=== PATIENT | female | born 1960 | race Caucasian/White ===

== ENCOUNTER 2018-05-06 06:23 | Day surgery (SDC) | payer OTHER ==
--- NOTE | 2018-05-04 16:58 | RAD REPORT ---
EXAM DESCRIPTION: Pradeep Brewster (2 Views)05/04/2018 4:51 pm CLINICAL HISTORY: Preop for lipoma removal lower back COMPARISON: September 2017 FINDINGS: The lungs appear clear of acute infiltrate. The heart is borderline enlarged IMPRESSION: No acute abnormalities displayed
[2018-05-04 17:20] LABS: Absolute Lymphocytes (CBC) 3.1 K/uL (0.7-4.9); Absolute Monocytes 0.7 K/uL (0.1-1.3); Absolute Neutrophil 3.8 K/uL (1.8-8.0); Basophils % 0.8 % (0-1.3); Eosinophils % 4.7 % (0-4.4); Hematocrit 32.6 % (36.0-45.0); Lymphocytes % 38.7 % (15.3-44.8); MCH 28.7 pg (27.0-35.0); MCV 83.9 fL (80-100); MPV 9.1 fL (7.6-11.3); Monocytes % 8.9 % (3.3-12.3); RBC Red Blood Cell Count 3.88 M/uL (3.86-4.86)
[2018-05-04 17:36] LABS: Potassium 3.8 mmol/L (3.5-5.1)
--- NOTE | 2018-05-05 06:29 | EKG ---
Test Date: 2018-05-04 Test Time: 17:47:08 Manager Convention: PRAMOD MEASUREMENT RESULTS: Intervals: Rate: 61 NH: 144 QRSD: 74 QT: 434 QTc: 436 [place]: P: 40 NH: 144 QRS: 31 T: 33 INTERPRETIVE STATEMENTS: Normal sinus rhythm Normal ECG No previous ECG available for comparison Electronically Signed On 05-05-18 06:28:54 ASBESTOS CLOTH INSPECTOR by Brendan Yepez
[2018-05-06] MEDS ORDERED: CEFAZOLIN/SWI 1gm 1 GM/10 ML SYR ONE (07:00)
[2018-05-06] MEDS ORDERED: Ringers Lactate 1,000 ML IV ONE (07:00)
[2018-05-06] MEDS ORDERED: PROPOFOL 200 MG/20 ML VIAL IV ONE (07:26)
[2018-05-06] MEDS ORDERED: MIDAZOLAM HCL 2 MG/2 ML INJ ONE (07:27)
[2018-05-06] MEDS ORDERED: FENTANYL CITR 100 MCG/2 ML ONE (07:27)
[2018-05-06] MEDS ORDERED: ONDANSETRON 4 MG/2 ML VIAL ONE (07:28)
[2018-05-06] MEDS ORDERED: LIDOCAINE 1% MPF 2 ML AMPULE ONE (07:29)
[2018-05-06] MEDS ORDERED: DEXAMETHASONE 10 MG/ML VIAL ONE (08:11)
--- NOTE | 2018-05-06 08:43 | P.BOP ---
Preoperative diagnosis: tender enlarging back subcutaneous mass Postoperative diagnosis: same Primary procedure: Excisional biopsy tender enlarging back subcutaneous mass 15x8cm Estimated blood loss: <10cc Specimen: mass Findings: deep mass touching muscle Anesthesia: General Transferred to: Recovery Room Condition: Good
[2018-05-06] MEDS ORDERED: CODEINE 30MG/APAP 300MG TAB ONE (09:54)
--- NOTE | 2018-05-11 22:49 | OP ---
Date of Procedure: 05/06/2018 Surgeon: Darryn Salmon MD Preoperative Diagnosis: Tender, enlarging back subcutaneous mass. Postoperative Diagnosis: Tender, enlarging back subcutaneous mass. Procedure: Excisional biopsy of tender, enlarging back subcutaneous mass, 15 x 8 cm. Specimen: Mass. Findings: Deep mass, pus in the muscle, some of the fascia of the muscle. The fascia of the muscle attached to it and needs to be also removed with the specimen. Anesthesia: General plus local. Indications: This is the case of a female, who came to us with a large mass increasing in size and p ain and discomfort, needs to be excised. The benefits, alternatives, and risks of excision were full y explained to the patient, which include but are not limited to infection, bleeding, damage to adjac ent structures, anesthesia complication, recurrence, NM, and even . She also understands this m ay not relieve any symptoms, she might need more than one surgical intervention. She understood and signed a consent. Description Of Procedure: The patient was brought to the operating room, placed in supine position. Anesthesia was done without complication. The area of concern was marked by me and the patient prev iously in the holding room. The patient was placed in lateral decubitus position with proper protect ion. A time-out was called. The area was prepped and draped in a sterile fashion followed by sharp incision of the skin in a wedge fashion. Incision was carried down to deep subcutaneous tissue. We noticed this mass keep going until I go and reach the area of the muscle, although the muscle seems n ot to be penetrated by it. The area was irrigated. Mass was completely excised. The area was irrig ated and then we closed it in deep layers with chromic, mid layers with chromic, and then the skin wa s approximated. Sponge count and instrument counts were correct. The patient tolerated the procedur e well. Hemostasis was obtained before closure. JASSON/WANDRE Voice ID: [id number] Report ID: [id number]
--- NOTE | 2018-05-11 22:50 | DS ---
Date of Discharge: 05/06/2018 Diagnosis: Tender, enlarging back subcutaneous mass. Procedure: Excisional biopsy of tender, enlarging back subcutaneous mass. Disposition: Home. Activity: As tolerated. No heavy lifting. Followup: Follow up in my office in 1 week. Call for appointment on [phone]. Keep area dry for 48 hours, then may shower. Medications: See orders. JASSON/WANDER Voice ID: [id number] Report ID: [id number]
== END 2018-05-06 10:09 | disposition home or self-care (01) ==
LOC: OR 06:23
PROVIDERS: ATTEND Surgery
PROC: 0JB70ZZ Excision of Back Subcutaneous Tissue and Fascia, Open Approach (ICD-10-PCS; principal; 2018-05-06 07:30)
DX: R22.2 Localized swelling, mass and lump, trunk (principal); K21.9 Gastro-esophageal reflux disease without esophagitis; Z80.3 Family history of malignant neoplasm of breast; Z82.49 Family history of ischemic heart disease and other diseases of the circulatory system
CPT/HCPCS: 36415; 71046; 80048; 85025; 88304; 93005; J0690; J1100; J2001; J2250; J2405; J2704; J3010

== ENCOUNTER 2019-07-02 13:23 | Observation (INO) | payer OTHER ==
--- OUTSIDE RECORDS SUMMARY | 2019-07-02 13:24 | XMS REPORT ---
:1960 [facility] Address [address] [place] [address] [address] [place] [address] Care Team Providers Name Role Phone Unavailable Unavailable Unavailable Problems This patient has no known problems. Allergies, Adverse Reactions, Alerts This patient has no known allergies or adverse reactions. Medications This patient has no known medications. Encounters Start End Encounter Admission Attending Care Care Encounter Date/Time Date/Time Type Type Clinicians Facility Department ID 2018-11-02 Inpatient [id number] 05:25:00
--- OUTSIDE RECORDS SUMMARY | 2019-07-02 13:24 | XMS REPORT | Summary of Care ---
:1960 Author Organization [facility] Address [address] [place] [address] Care Team Providers Name Role Phone MELODY CEDENO M.D. 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 Start : 29-Oct-2018 Active 0.4 ML Syringe Pantoprazole Sodium 40 MG Oral Tablet Delayed Release TAKE 1 TABLET DAILY. Quantity: 30 Refills: 0 MELODY CEDENO M.D. Start : 19-May-2019 Active Carafate 1 GM/10ML Oral Suspension TAKE 10 ML 4 TIMES DAILY Quantity: 1200 Refills: 0 MELODY CEDENO M.D. Start : 19-May-2019 Active Allergies and Adverse Reactions Name Dates Details No Known Drug Allergies (Allergy) Status: Active Procedures Procedure Dates Details Procedures not documented Immunization Name Dates Details Immunizations not documented Social History Name Dates Details Unknown if ever smoked Vital Signs Date Test Result Details No Known Vitals to report Results Date Description Value Details Results not documented Plan of Care Name Dates Details Planned Observations Planned Goals not documented Planned Encounters Appointment; MELODY CEDENO M.D. On: 07-Jul-2019 13:00 Instructions Name Dates Details Instructions not documented Encounters Appointment; MELODY CEDENO M.D. On: 01-Jul-2018 13:15 Encounter Diagnosis: Problem not documented Appointment; MELODY CEDENO M.D. On: 08-Jul-2018 9:45 Encounter Diagnosis: Problem not documented Appointment; [place] [facility] On: 03-Aug-2018 9:00 Encounter Diagnosis: Problem not documented Appointment; [place] [facility] On: 01-Sep-2018 9:00 Encounter Diagnosis: Problem not documented Appointment; [place] [facility] On: 08-Sep-2018 10:30 Encounter Diagnosis: Problem not documented Appointment; SUSANNE PARKER NP On: 23-Sep-2018 13:00 Encounter Diagnosis: Problem not documented Appointment; SUSANNE PARKER NP On: 02-Oct-2018 13:45 Encounter Diagnosis: Problem not documented Appointment; MELODY CEDENO M.D. On: 28-Oct-2018 9:30 Encounter Diagnosis: Problem not documented Appointment; MELODY CEDENO M.D. On: 02-Nov-2018 9:00 Encounter Diagnosis: Problem not documented Appointment; MELODY CEDENO M.D. On: 11-Nov-2018 8:45 Encounter Diagnosis: Problem not documented Appointment; MELODY CEDENO M.D. On: 23-Dec-2018 10:30 Encounter Diagnosis: Problem not documented Appointment; MELODY CEDENO M.D. On: 07-Jan-2019 9:00 Encounter Diagnosis: Problem not documented Appointment; MELODY CEDENO M.D. On: 20-Jan-2019 14:15 Encounter Diagnosis: Problem not documented Appointment; MELODY CEDENO M.D. On: 17-Feb-2019 10:45 Encounter Diagnosis: Problem not documented Appointment; MELODY CEDENO M.D. On: 24-Feb-2019 13:00 Encounter Diagnosis: Problem not documented Appointment; MELODY CEDENO M.D. On: 19-May-2019 8:45 Encounter Diagnosis: Problem not documented Appointment; MELODY CEDENO M.D. On: 04-Jun-2019 9:00 Encounter Diagnosis: Problem not documented
--- NOTE | 2019-07-02 13:47 | EKG ---
Test Date: 2019-07-02 Test Time: 13:36:48 Electronics Production Supervisor: ALEXI MEASUREMENT RESULTS: Intervals: Rate: 85 NM: QRSD: 76 QT: 396 QTc: 471 [place]: P: NM: QRS: 31 T: 6 INTERPRETIVE STATEMENTS: Atrial flutter with variable AV block Nonspecific ST and T wave abnormality Prolonged QT Abnormal ECG Compared to ECG 05/04/2018 17:47:08 ST (T wave) deviation now present Prolonged QT interval now present Sinus rhythm no longer present Electronically Signed On 07-02-19 13:46:38 SUPERINTENDENT CIRCUS by Govind Lizarraga
[2019-07-02 14:06] LABS: Protime INR 1.19
[2019-07-02 14:13] LABS: Absolute Lymphocytes (CBC) 1.1 K/uL (0.7-4.9); Basophils % 0.5 % (0-1.3); Hematocrit 35.2 % (36.0-45.0); Lymphocytes % 33.3 % (15.3-44.8); MPV 11.1 fL (7.6-11.3); RBC Red Blood Cell Count 4.03 M/uL (3.86-4.86)
[2019-07-02 14:23] LABS: Albumin 2.9 g/dL (3.4-5.0); Bilirubin Direct 0.1 mg/dL (0-0.2); Bilirubin Total 0.4 mg/dL (0.2-1.0); Magnesium 1.9 mg/dL (1.8-2.4); Protein, Total 6.3 g/dL (6.4-8.2); Troponin (Emerg Dept Use Only) 0.09 ng/mL (0.0-0.045)
[2019-07-02 14:24] LABS: Potassium 2.7 mmol/L (3.5-5.1)
--- NOTE | 2019-07-02 14:37 | RAD REPORT ---
EXAM DESCRIPTION: RAD - Chest Single View - 07/02/2019 2:13 pm CLINICAL HISTORY: Hypotension, shortness of breath, recent flu diagnosis COMPARISON: April 2018 TECHNIQUE: AP portable chest image was obtained 1404 hours . FINDINGS: Lungs are clear. Heart and vasculature are normal. No measurable pleural effusion and no p neumothorax. No acute bony abnormality seen. No acute aortic findings suspected. IMPRESSION: No acute cardiopulmonary process.
[2019-07-02 14:51] LABS: Blood Morphology Comment NOT SEEN (NOT SEEN); Platelet Estimate ADEQ
[2019-07-02] MEDS ORDERED: ASPIRIN EC 81 MG TAB PO ONE (15:41)
[2019-07-02] MEDS ORDERED: POTASSIUM CL SA 10 MEQ TAB PO ONE (15:41)
[2019-07-02] MEDS ORDERED: KCL 20 MEQ/100 mL IVPB 20 MEQ/100 ML BAG IV ONE (15:42)
[2019-07-02] MEDS ORDERED: NA CHLORIDE 0.9% 500 ML ONE (15:42)
[2019-07-02] MEDS ORDERED: NA CHLORIDE 0.9% 2,000 ML ONE (17:32)
--- NOTE | 2019-07-02 17:52 | RAD REPORT ---
EXAM DESCRIPTION: CT - Head Brain Wo Cont - 07/02/2019 5:43 pm CLINICAL HISTORY: Syncope COMPARISON: None TECHNIQUE: Computed axial tomography of the head was obtained. IV contrast was not requested. All CT scans are performed using dose optimization technique as appropriate and may include automated exposure control or mA/KV adjustment according to patient size. FINDINGS: An intracranial bleed is not seen . The ventricles are normal in caliber. No extra-axial fluid collection is noted. Cerebellar tonsillar ectopia is present Fluid within the sinuses/ mastoids is not seen. IMPRESSION: No acute intracranial abnormality is seen. If patient's symptoms persist MRI of the bra in would be recommended. Cerebellar tonsillar ectopia
--- NOTE | 2019-07-02 18:13 | ER ---
Nurse's Notes [facility] Name: Tricia Dodge Age: 59 yrs Sex: Female : 1960 Arrival Date: 07/02/2019 Time: 13:24 Bed 15 Private MD: Diagnosis: Syncope and collapse;Hypokalemia;Atrial fibrillation and flutter Presentation: 07/02 13:32 Presenting complaint: Patient states: "I was diagnosed with flu B yesterday, but when I ss was taking a shower today, I wasn't feeling well and I woke up to my granddaughter saying "Nanny Shaw!" I was vomiting and both of my hands were cramping and tingling as well as my knees. My blood pressure was low at the house." reports that incident occurred 1 hour ago. Transition of care: patient was not received from another setting of care. Onset of symptoms was June 30, 2019. Risk Assessment: Do you want to hurt yourself or someone else? Patient reports no desire to harm self or others. Initial Sepsis Screen: Does the patient meet any 2 criteria? Systolic BP < 90 mmHg. HR > 90 bpm. Yes Does the patient have a suspected source of infection? No. Patient's initial sepsis screen is negative. Care prior to arrival: None. 13:32 Method Of Arrival: Wheelchair ss 13:32 Acuity: SAMINA 2 ss Triage Assessment: 13:45 General: Appears in no apparent distress. comfortable, Behavior is cooperative, bp appropriate for age, anxious. Pain: Denies pain. EENT: No deficits noted. Neuro: Reports a syncopal episode. Cardiovascular: No deficits noted. Respiratory: No deficits noted. GI: No signs and/or symptoms were reported involving the gastrointestinal system. : No signs and/or symptoms were reported regarding the genitourinary system. Derm: No deficits noted. Musculoskeletal: No deficits noted. Historical: - Allergies: 13:35 No Known Allergies; ss - Home Meds: 15:21 escitalopram oxalate 10 mg oral tab 1 tab once daily [Active]; Klor-Con oral 8 mEq oral iw once daily [Active]; pantoprazole 40 mg oral TbEC 1 tab once daily [Active]; oseltamivir oral oral once daily [Active]; - PMHx: 15:21 GERD; Anxiety; Depression; iw - PSHx: 15:21 Gastric Bypass; breast reduction; sinus; Hysterectomy; iw - Immunization history:: Adult Immunizations up to date. - Social history:: Smoking status: Patient/guardian denies using tobacco. - Ebola Screening: : Patient denies exposure to infectious person Patient denies travel to an Ebola-affected area in the 21 days before illness onset. Screenin:25 Abuse screen: Denies threats or abuse. Denies injuries from another. Nutritional bp screening: No deficits noted. Tuberculosis screening: No symptoms or risk factors identified. Fall Risk None identified. Assessment: 13:45 General: SEE TRIAGE NOTE. Neuro: Level of Consciousness is awake, alert, obeys bp commands, Oriented to person, place, time, situation. Cardiovascular: Rhythm is sinus rhythm. 15:02 Reassessment: ALL CURRENT ORDERS COMPLETED, DISPO PENDING. bp 16:07 Reassessment: ALL CURRENT ORDERS COMPLETED, K REPLETION IN PROCESS. bp 17:33 Reassessment: PT TO CT. bp 17:58 Reassessment: PT RETURNED FROM CT. IVF INFUSING. bp 18:47 Reassessment: ADMIT IN PROCESS. MED REQUESTED FROM PHARMACY. bp 19:15 Reassessment: Patient and/or family updated on plan of care and expected duration. Pain vc level reassessed. Patient is alert, oriented x 3, equal unlabored respirations, skin warm/dry/pink. 20:30 Reassessment: Patient educated on the reason she is being started on Eliquis, vc at bedside, patient and both verbalize understanding and have no further questions. 21:00 Reassessment: Patient placed in hospital bed for comfort and provided a warm blanket. vc No other needs or concerns at this time. Vital Signs: 13:22 BP 71 / 56; Pulse 95; Resp 17; Temp 98.8(TE); Pulse Ox 100% on R/A; Weight 71.67 kg; ss Height 5 ft. 8 in. (172.72 cm); 13:30 BP 93 / 70; Pulse 96; Resp 19; Pulse Ox 100% on R/A; ss 13:36 BP 99 / 70; Pulse 93; ss 14:21 BP 97 / 69; Pulse 86; Resp 14; Pulse Ox 100% ; bp 14:49 BP 105 / 74; Pulse 89; Resp 15; Pulse Ox 100% ; bp 15:02 BP 113 / 75; Pulse 85; Resp 16; Pulse Ox 95% ; bp 15:48 BP 117 / 86; Pulse 105; Resp 21; Pulse Ox 100% ; bp 16:07 BP 108 / 71; Pulse 104; Resp 22; Pulse Ox 100% ; bp 17:00 BP 115 / 75; Pulse 70; Resp 20; Pulse Ox 95% ; bp 17:58 BP 109 / 71; Pulse 66; Resp 17; Pulse Ox 100% ; bp 18:47 BP 118 / 73; Pulse 59; Resp 15; Pulse Ox 100% ; bp 19:30 BP 116 / 84; Pulse 70; Resp 16; Pulse Ox 100% on R/A; Pain 0/10; vc 13:22 Body Mass Index 24.02 (71.67 kg, 172.72 cm) ss ED Course: 13:24 Patient arrived in ED. mr 13:28 Andre Dunn MD is Attending Physician. kdr 13:35 Triage completed. ss 13:36 Arm band placed on right wrist. ss 13:52 Initial lab(s) drawn, by az, sent to lab. Inserted saline lock: 22 gauge in right jb1 antecubital area, using aseptic technique. Blood collected. 13:53 EKG done, by psychology technician. reviewed by Andre Dunn MD. jb1 13:54 Flu and/or RSV swab sent to lab. jb1 13:59 Jaime Brooks, RN is Primary Nurse. bp 14:15 XRAY Chest (1 view) In Process Unspecified. EDMS 14:26 Patient has correct armband on for positive identification. Bed in low position. Call bp light in reach. Side rails up X2. 14:27 Notified ED physician of a critical lab result(s). potassium=2.7. iw 17:43 CT Head Brain wo Cont In Process Unspecified. EDMS 18:11 Duncan Jiang MD is Hospitalizing Provider. kdr 19:59 No provider procedures requiring assistance completed. Patient admitted, IV remains in vc place. Administered Medications: 15:30 Drug: Potassium Chloride 20 mEq Route: IV; Rate: calculated rate; Site: right bp antecubital; 17:58 Follow up: IV Status: Completed infusion; IV Intake: 100ml bp 15:30 Drug: Potassium Chloride 40 mEq Route: PO; bp 17:58 Follow up: Response: No adverse reaction bp 15:30 Drug: Aspirin Chewable Tablet 324 mg Route: PO; bp 17:58 Follow up: Response: No adverse reaction bp 17:00 Drug: NS 0.9% 2000 ml Route: IV; Rate: 1 bolus; Site: right antecubital; bp 07/03 03:45 Follow up: Response: No adverse reaction; IV Status: Completed infusion 07/02 17:57 Not Given (Physician Discretion): NS 0.45 % with KCl 20 mEq/L 2000 ml IV at 125 ml/hr bp once 20:13 Drug: Eliquis 5 mg Route: PO; vc 07/03 03:46 Follow up: Response: No adverse reaction wh Intake: 07/02 17:58 IV: 100ml; Total: 100ml. bp Outcome: 18:12 Decision to Hospitalize by Provider. kdr 19:59 Ad[facility] to [facility] Hold. [facility]. vc 19:59 Condition: good 19:59 Instructed on the need for admit. 07/03 12:30 Admitted to Med/surg accompanied by tech, family with patient, via wheelchair, room bp 228, with chart, Report called to JESSIE RIZVI 13:16 Patient left the ED. ss Signatures: Dispatcher [employer] EDMS Avni Colon Kevin, MD MD kdr Rivera, Mary mr Shaneka Burks RN RN Liz Hill RN RN Vannesa Adams Jamie Brooks RN RN bp Cal[place], Vanessa, RN RN vc
--- NOTE | 2019-07-02 18:14 | EDPHYS ---
Physician Documentation [facility] Name: Tricia Dodge Age: 59 yrs Sex: Female : 1960 Arrival Date: 07/02/2019 Time: 13:24 Bed 15 Private MD: ED Physician Andre Dunn HPI: 07/02 18:49 This 59 yrs old Female presents to ER via Wheelchair with complaints of Blood kdr Pressure Problem, Flu Symptoms, Syncope. 18:49 The patient has experienced syncope, became unresponsive, collapsed, lost kdr consciousness. Onset: The symptoms/episode began/occurred suddenly, just prior to arrival, today. Duration: This was a single episode, that lasted an unknown period of time. Context: the episode(s) was witnessed, by family, occurred at home, occurred while the patient was Standing in a hot shower for about 30 minutes. The patient also had a gastric bypass in the recent past and has lost about 100 pounds in the past three months. She denies any head trauma. Associated injury: The patient did not suffer any apparent associated injury. Associated signs and symptoms: The patient has no apparent associated signs or symptoms. Current symptoms: Currently, the patient is not experiencing any symptoms, the patient feels back to baseline, no confusion, no dysphasia, no headache, no paralysis, no visual changes. The patient has not experienced similar symptoms in the past. The patient has been recently seen by a physician: Was diagnosed with Flu B yesterday and had had one dose of Tamiflu. Historical: - Allergies: 13:35 No Known Allergies; - Home Meds: 15:21 escitalopram oxalate 10 mg oral tab 1 tab once daily [Active]; Klor-Con oral 8 mEq oral iw once daily [Active]; pantoprazole 40 mg oral TbEC 1 tab once daily [Active]; oseltamivir oral oral once daily [Active]; - PMHx: 15:21 GERD; Anxiety; Depression; iw - PSHx: 15:21 Gastric Bypass; breast reduction; sinus; Hysterectomy; iw - Immunization history:: Adult Immunizations up to date. - Social history:: Smoking status: Patient/guardian denies using tobacco. - Ebola Screening: : Patient denies exposure to infectious person Patient denies travel to an Ebola-affected area in the 21 days before illness onset. ROS: 18:49 Constitutional: Negative for fever, chills, and weight loss, Eyes: Negative for injury, kdr pain, redness, and discharge, Neck: Negative for injury, pain, and swelling, Cardiovascular: Negative for chest pain, palpitations, and edema - she denies any specific a-fub s/s - states that she had not felt entirely normal but could not attribute her feelings to her now known a-fib Respiratory: Negative for shortness of breath, cough, wheezing, and pleuritic chest pain, Abdomen/GI: Negative for abdominal pain, nausea, vomiting, diarrhea, and constipation, Back: Negative for injury and pain, : Negative for injury, bleeding, discharge, and swelling, MS/Extremity: Negative for injury and deformity, Skin: Negative for injury, rash, and discoloration, Psych: Negative for depression, anxiety, suicide ideation, homicidal ideation, and hallucinations, Allergy/Immunology: Negative for hives, rash, and allergies, Endocrine: Negative for neck swelling, polydipsia, polyuria, polyphagia, and marked weight changes, Hematologic/Lymphatic: Negative for swollen nodes, abnormal bleeding, and unusual bruising. 18:49 Neuro: Positive for loss of consciousness, syncope. Exam: 18:49 Constitutional: This is a well developed, well nourished patient who is awake, alert, kdr and in no acute distress. Head/Face: Normocephalic, atraumatic. Eyes: Pupils equal round and reactive to light, extra-ocular motions intact. Lids and lashes normal. Conjunctiva and sclera are non-icteric and not injected. Cornea within normal limits. Periorbital areas with no swelling, redness, or edema. ENT: Nares patent. No nasal discharge, no septal abnormalities noted. Tympanic membranes are normal and external auditory canals are clear. Oropharynx with no redness, swelling, or masses, exudates, or evidence of obstruction, uvula midline. Mucous membranes moist. Neck: Trachea midline, no thyromegaly or masses palpated, and no cervical lymphadenopathy. Supple, full range of motion without nuchal rigidity, or vertebral point tenderness. No Meningismus. Chest/axilla: Normal chest wall appearance and motion. Nontender with no deformity. No lesions are appreciated. Respiratory: Lungs have equal breath sounds bilaterally, clear to auscultation and percussion. No rales, rhonchi or wheezes noted. No increased work of breathing, no retractions or nasal flaring. Abdomen/GI: Soft, non-tender, with normal bowel sounds. No distension or tympany. No guarding or rebound. No evidence of tenderness throughout. Back: No spinal tenderness. No costovertebral tenderness. Full range of motion. Skin: Warm, dry with normal turgor. Normal color with no rashes, no lesions, and no evidence of cellulitis. MS/ Extremity: Pulses equal, no cyanosis. Neurovascular intact. Full, normal range of motion. Neuro: Awake and alert, GCS 15, oriented to person, place, time, and situation. Cranial nerves II-XII grossly intact. Motor strength 5/5 in all extremities. Sensory grossly intact. Cerebellar exam normal. Normal gait. Psych: Awake, alert, with orientation to person, place and time. Behavior, mood, and affect are within normal limits. 18:49 Cardiovascular: Rate: normal, Rhythm: irregularly irregular, Pulses: no pulse deficits are appreciated, Heart sounds: normal, Edema: is not appreciated, JVD: is not appreciated. Vital Signs: 13:22 BP 71 / 56; Pulse 95; Resp 17; Temp 98.8(TE); Pulse Ox 100% on R/A; Weight 71.67 kg; ss Height 5 ft. 8 in. (172.72 cm); 13:30 BP 93 / 70; Pulse 96; Resp 19; Pulse Ox 100% on R/A; ss 13:36 BP 99 / 70; Pulse 93; ss 14:21 BP 97 / 69; Pulse 86; Resp 14; Pulse Ox 100% ; bp 14:49 BP 105 / 74; Pulse 89; Resp 15; Pulse Ox 100% ; bp 15:02 BP 113 / 75; Pulse 85; Resp 16; Pulse Ox 95% ; bp 15:48 BP 117 / 86; Pulse 105; Resp 21; Pulse Ox 100% ; bp 16:07 BP 108 / 71; Pulse 104; Resp 22; Pulse Ox 100% ; bp 17:00 BP 115 / 75; Pulse 70; Resp 20; Pulse Ox 95% ; bp 17:58 BP 109 / 71; Pulse 66; Resp 17; Pulse Ox 100% ; bp 18:47 BP 118 / 73; Pulse 59; Resp 15; Pulse Ox 100% ; bp 19:30 BP 116 / 84; Pulse 70; Resp 16; Pulse Ox 100% on R/A; Pain 0/10; vc 13:22 Body Mass Index 24.02 (71.67 kg, 172.72 cm) ss MDM: 18:12 Patient medically screened. kdr 18:49 Data reviewed: vital signs, nurses notes, lab test result(s), EKG, radiologic studies. kdr Counseling: I had a detailed discussion with the patient and/or guardian regarding: the historical points, exam findings, and any diagnostic results supporting the discharge/admit diagnosis, lab results, radiology results, the need for further work-up and treatment in the hospital. Physician consultation: Duncan Jiang MD was called at 19:43, was contacted at 19:43, regarding admission, to the telemetry unit. and will see patient in inpatient room, tomorrow, would like consultation with Dr. Dr. Lizarraga. Physician consultation: Govind Lizarraga MD. 07/02 13:29 Order name: Basic Metabolic Panel; Complete Time: 15:11 kdr 07/02 13:29 Order name: CBC with Diff; Complete Time: 15:11 kdr 07/02 13:29 Order name: LFT's; Complete Time: 15:11 kdr 07/02 13:29 Order name: Magnesium; Complete Time: 15:11 kdr 07/02 13:29 Order name: NT PRO-BNP; Complete Time: 15:11 kdr 07/02 13:29 Order name: PT-INR; Complete Time: 15:11 kdr 07/02 13:29 Order name: Troponin (emerg Dept Use Only); Complete Time: 15:11 kdr 07/02 13:29 Order name: Flu; Complete Time: 15:11 kdr 07/02 14:52 Order name: Manual Differential; Complete Time: 15:11 EDMS 07/02 22:09 Order name: Troponin I EDMS 07/03 04:02 Order name: Troponin I EDMS 07/03 05:58 Order name: Basic Metabolic Panel EDMS 07/03 06:00 Order name: CBC with Automated Diff EDMS 07/03 08:02 Order name: Manual Differential EDMS 07/02 13:29 Order name: XRAY Chest (1 view); Complete Time: 15:11 kdr 07/02 13:29 Order name: EKG; Complete Time: 13:31 kdr 07/02 13:29 Order name: Cardiac monitoring; Complete Time: 13:31 [facility] 07/02 13:29 Order name: EKG - Nurse/Tech; Complete Time: 13:32 [facility] 07/02 13:29 Order name: IV Saline Lock; Complete Time: 13:53 [facility] 07/02 13:29 Order name: Labs collected and sent; Complete Time: 13:53 [facility] 07/02 13:29 Order name: O2 Per Protocol; Complete Time: 13:31 [facility] 07/02 13:29 Order name: O2 Sat Monitoring; Complete Time: 13:32 [facility] 07/02 16:52 Order name: CT Head Brain wo Cont; Complete Time: 18:11 kdr Administered Medications: 15:30 Drug: Potassium Chloride 20 mEq Route: IV; Rate: calculated rate; Site: right bp antecubital; 17:58 Follow up: IV Status: Completed infusion; IV Intake: 100ml bp 15:30 Drug: Potassium Chloride 40 mEq Route: PO; bp 17:58 Follow up: Response: No adverse reaction bp 15:30 Drug: Aspirin Chewable Tablet 324 mg Route: PO; bp 17:58 Follow up: Response: No adverse reaction bp 17:00 Drug: NS 0.9% 2000 ml Route: IV; Rate: 1 bolus; Site: right antecubital; bp 04 03:45 Follow up: Response: No adverse reaction; IV Status: Completed infusion 07/02 17:57 Not Given (Physician Discretion): NS 0.45 % with KCl 20 mEq/L 2000 ml IV at 125 ml/hr bp once 20:13 Drug: Eliquis 5 mg Route: PO; vc 07/03 03:46 Follow up: Response: No adverse reaction Disposition: 07/02/19 18:12 Hospitalization ordered by Duncan Jiang for Inpatient Admission. Preliminary diagnosis are Syncope and collapse, Hypokalemia, Atrial fibrillation and flutter. - Bed requested for Telemetry/MedSurg (Inpatient). - Status is Inpatient Admission. ss - Condition is Fair. - Problem is new. - Symptoms have improved. UTI on Admission? No Signatures: Dispatcher [employer] Sumi Fall RN RN dw Rittger, Kevin, MD MD [facility] Shaneka Burks RN RN iw Liz Hill RN RN ss Peltier, Brian, RN RN bp Ambar Madison RN RN vc Vannesa Adams Corrections: (The following items were deleted from the chart) 07/02 20:05 18:12 Hospitalization Ordered by Duncan Jiang MD for Inpatient Admission. Preliminary dw diagnosis is Syncope and collapse; Hypokalemia; Atrial fibrillation and flutter. Bed requested for Telemetry/MedSurg (Inpatient). Status is Inpatient Admission. Condition is Fair. Problem is new. Symptoms have improved. UTI on Admission? No. kdr 20:27 20:05 07/02/2019 18:12 Hospitalization Ordered by Duncan Jiang MD for Inpatient dw Admission. Preliminary diagnosis is Syncope and collapse; Hypokalemia; Atrial fibrillation and flutter. Bed requested for Telemetry/MedSurg (Inpatient). Status is Inpatient Admission. Condition is Fair. Problem is new. Symptoms have improved. UTI on Admission? No. dw 07/03 11:32 07/02 20:27 07/02/2019 18:12 Hospitalization Ordered by Duncan Jiang MD for Inpatient dw Admission. Preliminary diagnosis is Syncope and collapse; Hypokalemia; Atrial fibrillation and flutter. Bed requested for [facility] ER HOLD. Status is Inpatient Admission. Condition is Fair. Problem is new. Symptoms have improved. UTI on Admission? No. dw 07/03 11:32 11:32 07/02/2019 18:12 Hospitalization Ordered by Duncan Jiang MD for Inpatient dw Admission. Preliminary diagnosis is Syncope and collapse; Hypokalemia; Atrial fibrillation and flutter. Bed requested for Telemetry/MedSurg (Inpatient). Status is Inpatient Admission. Condition is Fair. Problem is new. Symptoms have improved. UTI on Admission? No. dw 13:16 11:32 07/02/2019 18:12 Hospitalization Ordered by Duncan Jiang MD for Inpatient ss Admission. Preliminary diagnosis is Syncope and collapse; Hypokalemia; Atrial fibrillation and flutter. Bed requested for Telemetry/MedSurg (Inpatient). Status is Inpatient Admission. Condition is Fair. Problem is new. Symptoms have improved. UTI on Admission? No. dw
[2019-07-02] MEDS ORDERED: ONDANSETRON 4 MG/2 ML VIAL IV PRN (19:00)
[2019-07-02] MEDS ORDERED: ACETAMINOPHEN 500 MG TAB PO PRN (19:00)
[2019-07-02] MEDS ORDERED: APIXABAN 5 MG TABLET PO ONE (19:00)
[2019-07-02] MEDS: APIXABAN 5 MG TABLET PO SCH (21:00)
[2019-07-03 03:08] VITALS: BMI 24.0
[2019-07-03] MEDS ORDERED: METOPROLOL TAR 25 MG TAB ONE (04:37)
[2019-07-03 05:25] LABS: Absolute Lymphocytes (CBC) 1.8 K/uL (0.7-4.9); Basophils % 0.7 % (0-1.3); Hematocrit 29.4 % (36.0-45.0); Lymphocytes % 60.6 % (15.3-44.8); MPV 10.8 fL (7.6-11.3); RBC Red Blood Cell Count 3.33 M/uL (3.86-4.86)
[2019-07-03 05:58] LABS: Potassium 3.1 mmol/L (3.5-5.1)
[2019-07-03] MEDS ORDERED: METOPROLOL XL 25 MG TAB PO SCH (06:00)
[2019-07-03 08:01] LABS: Blood Morphology Comment NOTED (NOT SEEN); Platelet Estimate DECR
[2019-07-03] MEDS ORDERED: ASPIRIN EC 81 MG TAB PO SCH (09:00)
[2019-07-03] MEDS: APIXABAN 5 MG TABLET PO SCH (09:00)
[2019-07-03] MEDS ORDERED: ASPIRIN EC 81 MG TAB PO ONE (09:04)
[2019-07-03 13:59] VITALS: O2SAT 96
--- NOTE | 2019-07-03 14:50 | EKG ---
Test Date: 2019-07-03 Test Time: 11:04:53 Facilities Project Manager: RUMA MEASUREMENT RESULTS: Intervals: Rate: 66 IN: 134 QRSD: 82 QT: 442 QTc: 463 [place]: P: 43 IN: 134 QRS: 43 T: 25 INTERPRETIVE STATEMENTS: Normal sinus rhythm Nonspecific ST abnormality Abnormal ECG Compared to ECG 07/02/2019 16:07:45 Atrial fibrillation no longer present Ventricular premature complex(es) no longer present Prolonged QT interval no longer present ST (T wave) deviation still present Electronically Signed On 07-03-19 14:50:08 CLERK SECRETARY by Govind Lizarraga
--- NOTE | 2019-07-03 14:52 | EKG ---
Test Date: 2019-07-02 Test Time: 16:07:45 Career Specialist: CHRISTY MEASUREMENT RESULTS: Intervals: Rate: 94 OR: QRSD: 72 QT: 378 QTc: 472 [place]: P: OR: QRS: 37 T: -9 INTERPRETIVE STATEMENTS: Atrial fibrillation with premature ventricular or aberrantly conducted complexes Nonspecific ST and T wave abnormality Prolonged QT Abnormal ECG Compared to ECG 07/02/2019 13:36:48 Ventricular premature complex(es) now present Atrial flutter no longer present ST (T wave) deviation still present Electronically Signed On 07-03-19 14:50:28 MISSILE PAD MECHANIC by Govind Lizarraga
[2019-07-03] MEDS ORDERED: POTASSIUM CL SA 10 MEQ TAB PO ONE (16:00)
[2019-07-03 16:35] VITALS: TEMP 99.8
[2019-07-03 17:43] VITALS: BP 124/73
--- NOTE | 2019-07-03 18:01 | CON ---
Date of Consultation: 07/03/[address] Jiang's service on 07/02/2019. I saw the patient on 07/03/2019. Reason For Consultation: New onset atrial fibrillation. History Of Present Illness: Ms. Dodge is 59 years old, has really no previous cardiac history. She has a history of gastroesophageal reflux disease, anxiety, depression. She has had a history of mira ast reduction and gastric bypass and has lost a lot of weight after her gastric bypass. Yesterday, s he had an episode of syncope after taking a shower. It was a long shower, she was there for 30 minut es and after she was done, apparently she had an episode where she passed out for about 5 minutes, wa s very hypotensive at home and on arrival to the emergency room. Her systolic blood pressure was 70. She was hydrated aggressively. Her potassium was 2.7, which was corrected. Her magnesium was 1.9. She was supplemented with that, but she was found to have atrial fibrillation and flutter. She was given metoprolol for that. She was placed on Eliquis and converted to sinus rhythm spontaneously. She did not have any history of chest pain or palpitation prior to this episode. Past Medical History: Otherwise stated above. Allergies: NONE. Review of Systems: Negative. Social History: Negative. Family History: Noncontributory. Medications: She does not take any cardiac med or any med for high blood pressure or cholesterol. Physical Examination: Vital Signs: Stable. She was in sinus rhythm, rate of 70. HEENT: Negative. Neck: Supple. No bruit. Chest: Clear. Cardiac: Normal. Abdomen: Benign. Extremities: Revealed no clubbing, cyanosis, or edema. Diagnostic Data: Showed a normal x-ray. Potassium and magnesium are aforementioned. Her troponin w as 0.09. Initial EKG showed flutter; the second one was normal. Impression And Plan: 1.Atrial flutter, most likely secondary to hypokalemia and recent illness with nausea, vomiting, and diarrhea, which has caused the hypokalemia. 2.Orthostatic hypotension secondary to what sounds like viral gastroenteritis. Ms. Dodge is in normal rhythm. I am comfortable with her being on metoprolol low dose and I agree w ith the Eliquis and I think this may have been a transient episode because of the hypokalemia. Never theless, what I plan to do is see her in the office in about 3-4 weeks, obtain an event monitor for a bout 7 days and if she does not have any more arrhythmias between now and then, I will take her off t he Eliquis and metoprolol at that point. I will have her do an echocardiogram and a stress test as a n outpatient as well. The case was discussed with Dr. Jiang. She can go home today. ARMANDO/WANDER Voice ID: [id number] Report ID: [id number]
--- NOTE | 2019-07-06 08:22 | DS ---
Date of Discharge: 07/03/2019 Chief Complaint: "I passed out." History Of Present Illness: 59-year-old very pleasant female patient had gastric bypass surgery a fe w months ago and has been losing significant amount of weight. Last time I saw her at office was abo ut 2-3 months ago and she has lost pounds since I saw her at office and current weight whe n she came into the hospital this time is 158 pounds. Patient takes her medication as prescribed. S he has been having some hypokalemia since her gastric bypass surgery and she takes her potassium repl acement dose as prescribed. She was feeling fine in her normal usual state of health until yesterday . She went to [facility] because she was having some cough, congestion, fever type of feelin g. She was tested positive for influenza type B and was sent home with Tamiflu that she started taki ng it. Today, she was feeling better. She was in shower with her granddaughter and the patient says that they both were in shower for about 30 minutes; and after taking shower, they were just playing in the shower. So, almost after 30 minutes or so her granddaughter got out of the shower and the pat ient was almost getting ready to get out of the shower and she all of a sudden felt very weak, dizzy, felt like she was going to faint and she fell down on the floor in the bathroom. Her granddaughter was just outside the shower. She started calling the patient's for help and he came there, f ound out that she had lost consciousness. She was on the bathroom floor in a position with her hand all contracted and flexed and she probably had lost consciousness for anywhere between 5-10 min utes; and after that, she woke up. Patient's did check her blood pressure during this time a nd her blood pressure was 61/55. Once she regained consciousness with her 's help, she was ab le to get up and get out of the shower, get dressed, and she was brought into the emergency room. He r initial blood pressure in the emergency room was 71/56 with a pulse rate 95. She was given IV flui d in the emergency room and blood pressure started to come up. She was noted to have atrial fibrilla tion/atrial flutter in emergency room when she came in and she had no palpitation type of feeling. W cristina I was contacted from the ER, I ordered another 1 L of IV fluid, so she was ordered to receive tot al of 2 L of IV fluid. I saw her in the morning in the emergency room when she was feeling back to h er normal self. Denies any head injury. When her found her on the bathroom floor, he noted some white bubbles froth coming out of her mouth. There was no evidence of any incontinence of bowel . Allergies: NO KNOWN ALLERGIES. Medications: She takes escitalopram 10 mg p.o. daily, pantoprazole 40 mg p.o. daily, and Klor-Con 8 mEq p.o. daily. Review of Systems: Cardiovascular: As mentioned above. MAGNETIZER: As mentioned above. Respiratory: As mentioned above. All other systems reviewed and negative. Past Medical History: Significant for deviated nasal septum, obstructive sleep apnea, hyperlipidemia , gastroesophageal reflux disease, diverticulosis, osteoarthritis, calcific and hypokalemi a. Past Surgical History: Sinus surgery, gastric bypass surgery on November 02, 2018. Her weight prior to [facility] was 269 pounds. Past surgical history also significant for hysterectomy and reduction mammopla sty. Family History: Significant for father had heart disease and atrial fibrillation. Mother had breast cancer, stroke. Brother multiple sclerosis. Social History: Negative for smoking or alcohol use. Physical Examination: Vital Signs: When I saw her in the emergency room, height 5 feet 8 inches, weight 158 pounds. [place] rature 98.5, pulse 67, respiratory rate 18, blood pressure 109/64, oxygen saturation . General: Awake, alert, oriented, not in distress. HEENT: Head atraumatic, normocephalic. Conjunctivae nonerythematous. Sclerae white. Mouth, no thr ush or edema noted. Ears/Nose, no mass, lesion, discharge noted. Neck: Supple. No JVD, lymph nodes, bruit, thyromegaly noted. Lungs: Bilateral good equal air entry. Clear to auscultation. No rhonchi. No rales. Heart: Normal heart sounds, no murmur or gallop. Abdomen: Soft, bowel sounds normal. No guarding, rigidity, tenderness, mass, hepatosplenomegaly, dis tention, or bruit noted. Extremities: No leg edema. No calf tenderness. Skin: No rash, ulcer, cellulitis. Lymphatics: No lymph node enlargement in neck, supraclavicular, infraclavicular region. Neuro: No focal neurological deficit. Chest: Unremarkable. External Genitalia: Deferred. Rectal: Deferred. Laboratory Data: On 07/02/2019, white count 3.3, hemoglobin 12, platelets 166. On 07/03/2019, white count 3, hemoglobin 10.1, platelets . On 07/02/2019, sodium 140, potassium 2.7, chloride 102, bicarb 27, BUN 9, creatinine 0.88, glucose 92. Liver function tests unremarkable. On 0, sodium 143, potassium 3.1, chloride 109, bicarb 25, BUN 8, creatinine 0.71, glucose 64. Her initi al troponin 0.09, second troponin 0.14, third troponin . CAT scan of the brain, no acute i ntracranial changes, cerebellar tonsillar ectopia noted. EKG was reported as atrial flutter. When I saw her, she was in sinus rhythm. Chest x-ray, no acute cardiopulmonary changes. Hospital Course: After patient presented to emergency room, she was treated with IV fluid. Potassiu m was corrected. After I saw her, I ordered 40 mEq potassium chloride tablets p.o. x1 dose. Cardiol ogy consultation was requested from Dr. Lizarraga and I did call Dr. Lizarraga and discussed details with him. Patient was started on Eliquis 5 mg twice a day and metoprolol XL 25 mg p.o. daily and she has tolerated both medications very well. She is ambulating well. Dr. Lizarraga evaluated her, and patie nt and her they both would like for her to go home if at all possible. Medically, she is sta ble for discharge. Final Diagnoses: 1.Syncope. 2.Volume depletion. 3.Atrial fibrillation. 4.Hypokalemia. 5.Diverticulosis. 6.Gastroesophageal reflux disease. 7.Hyperlipidemia. 8.Anemia. 9.Thrombocytopenia. Discharge Medications And Instructions: 1.Continue all prior home medications, except change potassium chloride 8 mEq tablets. Patient to t kathrin 2 tablets by mouth 2 times a day and she has plenty of supply at home and does not need any new p rescription at this point. 2.Follow up at my office on July 08, 2019, and follow up with Dr. Lizarraga in 1-2 weeks; and as per my discussion with Dr. Lizarraga, he will place event monitor on her and then he will decide if there is no evidence of any atrial fibrillation, then he will discontinue her Eliquis after 1 month. 3.Patient to take Eliquis 5 mg 2 times a day and metoprolol succinate 25 mg p.o. daily. 4.I have given instruction to patient when I talked to her for this hospital admission that she shou ld drink about 2-4 bottles of water a day and 2 bottles of Gatorade on a daily basis. SAÚL/MODL Voice ID: [id number] Report ID: [id number]
== END 2019-07-03 18:00 | disposition home or self-care (01) ==
LOC: ER 13:23 → ERHOLD 18:58 → INTOOBSV 18:58 → 2ND 07-03 12:30
PROVIDERS: ADMIT Internal Medicine; ATTEND Internal Medicine
DX: R55 Syncope and collapse (principal); E86.9 Volume depletion, unspecified; I48.91 Unspecified atrial fibrillation; E87.6 Hypokalemia; K57.90 Diverticulosis of intestine, part unspecified, without perforation or abscess without bleeding; K21.9 Gastro-esophageal reflux disease without esophagitis; E78.5 Hyperlipidemia, unspecified; D64.9 Anemia, unspecified; D69.6 Thrombocytopenia, unspecified; Z98.84 Bariatric surgery status
CPT/HCPCS: 96365; 96361; 93005 ×3; 85025 ×2; 80048 ×2; 36415; 83735; 85610; 80076; 84484 ×3; 83880; 87804 ×2; 70450; 71045; 99285; 96366; J7040; J7030; G0378 ×3

== ENCOUNTER → 2023-08-15 | Emergency (ER) | payer OTHER ==
[~2023-08-15] MED LIST: BUPIVACAINE 0.5% PF 10 ML VIAL ONE; LIDOCAINE 1% MPF 5 ML VIAL ONE; MORPHINE 4 MG/ML SYR ONE; ONDANSETRON 4 MG/2 ML VIAL ONE; TDAP (DIPHTH,PERTUSS(ACELL),TET VAC) 0.5 ML VIAL IMVAC ONE
--- NOTE | 2023-08-15 06:57 | ER ---
Nurse's Notes [facility] Name: Tricia Dodge Age: 63 yrs Sex: Female : 1960 Arrival Date: 08/15/2023 Time: 05:01 Bed 4 Private MD: Diagnosis: Mechanical fall;Facial laceration;Left proximal humerus fracture Presentation: 08/15 05:06 Chief complaint: Patient states: fall from standing onto of bed while trying to adjust pf1 the ceiling with possible loss of consciousness, laceration to left temporal region/eyebrow and left shoulder pain of 9 with possible shoulder dislocation,onset 1 hour ago. Patient stated hit head onto nightstand and landed onto left shoulder on the floor. 05:06 Coronavirus screen: Client denies travel out of the [place] in the last 14 days. At this pf1 time, the client does not indicate any symptoms associated with coronavirus-19. Ebola Screen: Patient negative for fever greater than or equal to 101.5 degrees Fahrenheit, and additional compatible Ebola Virus Disease symptoms. Initial Sepsis Screen: Does the patient meet any 2 criteria? No. Patient's initial sepsis screen is negative. Does the patient have a suspected source of infection? No. Patient's initial sepsis screen is negative. Risk Assessment: Do you want to hurt yourself or someone else? Patient reports no desire to harm self or others. 05:06 Method Of Arrival: Wheelchair pf1 05:06 Acuity: SAMINA 2 pf1 Historical: - Allergies: 05:29 No Known Allergies; pf1 - PMHx: 05:29 Anxiety; Depression; GERD; pf1 05:30 hypokalemia; pf1 - PSHx: 05:30 gastric bypass; Total abdominal hysterectomy; pf1 - Immunization history:: Adult Immunizations up to date, 3 doses of Pfizer Last tetanus immunization: > 10 years ago Flu vaccine is up to date. - Social history:: Smoking status: Patient denies any tobacco usage or history of. Patient uses alcohol, only on a social basis. Patient/guardian denies using street drugs. - Family history:: not pertinent. Screenin:17 [facility] ED Fall Risk Assessment (Adult) History of falling in the last 3 months, tm6 including since admission Yes- single mechanical fall (1 pt) Confusion or Disorientation No (0 pts) Intoxicated or Sedated No (0 pts) Impaired Gait No (0 pts) Mobility Assist Device Used No (0 pt) Altered Elimination No (0 pt) Score/Fall Risk Level 3 or more points = High Risk Oriented to surroundings, Maintained a safe environment, Educated pt \T\ family on fall prevention, incl call for assistance when getting out of bed. Abuse screen: Denies threats or abuse. Denies injuries from another. Nutritional screening: No deficits noted. Tuberculosis screening: No symptoms or risk factors identified. Assessment: 06:17 General: Appears uncomfortable, Behavior is calm, cooperative, appropriate for age. tm6 Pain: Complains of pain in forehead and left eye. Neuro: Level of Consciousness is awake, alert, obeys commands, Oriented to person, place, time, situation. Cardiovascular: Capillary refill < 3 seconds Patient's skin is warm and dry. Respiratory: Airway is patent Respiratory effort is even, unlabored, Respiratory pattern is regular, symmetrical. GI: Abdomen is flat, non-distended. : No signs and/or symptoms were reported regarding the genitourinary system. EENT: No signs and/or symptoms were reported regarding the EENT system. Derm: Wound noted forehead and left eye. Musculoskeletal: Reports pain in posterior aspect of left shoulder. 06:36 Reassessment: Patient appears in no apparent distress at this time. No changes from tm6 previously documented assessment. Vital Signs: 05:06 BP 142 / 83; Pulse 67; Resp 16; Temp 98.5; Pulse Ox 100% on R/A; Weight 71.67 kg; pf1 Height 5 ft. 8 in. ; Pain 9/10; 06:35 BP 140 / 78; Pulse 64; Pulse Ox 98% on R/A; tm6 05:06 Body Mass Index 24.02 (71.67 kg, 172.72 cm) pf1 05:06 Pain Scale: Adult pf1 ED Course: 05:06 Patient arrived in ED. tm6 05:06 Damir Castrejon MD is Attending Physician. rt 05:21 Shoulder Left (2 View) XRAY In Process Unspecified. EDMS 05:29 Triage completed. pf1 05:41 CT Head C Spine In Process Unspecified. EDMS 06:03 Ambar Madison RN is Primary Nurse. vc1 06:17 Patient has correct armband on for positive identification. Bed in low position. Side tm6 rails up X2. Provided Education on: plan of care. Client placed on continuous cardiac and pulse oximetry monitoring. NIBP monitoring applied. Door closed. Noise minimized. Warm blanket given. 06:17 Assist provider with laceration repair on left eye using sutures. Set up tray. tm6 Performed by Damir Castrejon MD Patient tolerated well. 06:55 Charles Smalls MD is Referral Physician. rt 06:59 IV discontinued, intact, bleeding controlled, No redness/swelling at site. Pressure vc1 dressing applied. Administered Medications: 05:10 CANCELLED (Duplicate Order): bupivacaine-epinephrine(0.5 %) 5 ml Infiltration once; to rt bedside 05:27 Drug: morphine IVP or IV 4 mg IVP once over 4 mins Route: IVP; Infused Over: 4 mins; vc1 Site: right antecubital; 06:35 Follow up: Response: No adverse reaction; No change in condition vc1 05:27 Drug: Ondansetron IVP 4 mg IVP once; over 2 minutes Route: IVP; Site: right antecubital;vc1 06:35 Follow up: Response: No adverse reaction; Marked relief of symptoms vc1 05:29 CANCELLED (Other Intervention Used): tetanus-diphtheria toxoidadult 0.5 ml IM once; vc1 Provide Vaccine Information Statement (VIS). 05:32 Not Given (change in plan): bupivacaine(0.5 %) 5 ml 10 ml Infiltration once rt 06:03 Drug: Boostrix Tdap IM 0.5 ml IM once; as a single dose Route: IM; Site: right deltoid; vc1 06:34 Follow up: Response: No adverse reaction vc1 06:09 Drug: morphine IVP or IV 4 mg IVP once over 4 mins Route: IVP; Infused Over: 4 mins; vc1 Site: right antecubital; 06:35 Drug: Lidocaine Infiltration (1 %) 5 ml 5 ml Infiltration once; to bedside {Note: vc1 administered to laceration above left eyebrow by Dr. Castrejon.} Volume: 5 ml; Route: Infiltration; Medication: 06:17 VIS not applicable for this client. tm6 Outcome: 06:56 Discharge ordered by MD. rt 06:59 Discharged to home ambulatory, with family, vc1 06:59 Condition: good 06:59 Discharge instructions given to patient, Instructed on discharge instructions, follow up and referral plans. medication usage, Demonstrated understanding of instructions, follow-up care, medications, 06:59 Prescriptions given X 2, vc1 07:03 Patient left the ED. vc1 Signatures: Dispatcher [employer] EDMS Ambar Madison RN RN vc1 Damir Castrejon MD MD rt Finley, Pamala, RN RN pf1 Ad Dhaliwal RN RN tm6
--- NOTE | 2023-08-15 06:57 | EDPHYS ---
Physician Documentation [facility] Name: Tricia Dodge Age: 63 yrs Sex: Female : 1960 Arrival Date: 08/15/2023 Time: 05:01 Bed 4 Private MD: ED Physician Damir Castrejon HPI: 08/15 05:11 This 63 yrs old Female presents to ER via Unassigned with complaints of fall. rt 05:11 Patient presents to the ED with a fall. The patient reportedly was standing in her bed rt trying to adjust a fan when she fell over hitting her head as well as her left shoulder. She believes that her shoulder is dislocated, has pain to that area. Did hit her head, states that she had a brief loss of consciousness, denies near syncopal symptoms. Reports laceration above the left eyebrow. Denies other acute complaints, symptoms are moderate in severity, no other aggravating or alleviating factors.. Historical: - Allergies: 05:29 No Known Allergies; pf1 - PMHx: 05:29 Anxiety; Depression; GERD; pf1 05:30 hypokalemia; pf1 - PSHx: 05:30 gastric bypass; Total abdominal hysterectomy; pf1 - Immunization history:: Adult Immunizations up to date, 3 doses of Pfizer Last tetanus immunization: > 10 years ago Flu vaccine is up to date. - Social history:: Smoking status: Patient denies any tobacco usage or history of. Patient uses alcohol, only on a social basis. Patient/guardian denies using street drugs. - Family history:: not pertinent. ROS: 05:11 Constitutional: Negative for fever, chills, and weight loss, Cardiovascular: Negative rt for chest pain, palpitations, and edema, Respiratory: Negative for shortness of breath, cough, wheezing, and pleuritic chest pain, Abdomen/GI: Negative for abdominal pain, nausea, vomiting, diarrhea, and constipation, Neuro: Negative for headache, weakness, numbness, tingling, and seizure, Psych: Negative for depression, anxiety, suicide ideation, homicidal ideation, and hallucinations, 05:11 MS/extremity: Positive for injury or acute deformity, decreased range of motion, 05:11 Skin: Positive for laceration(s), Negative for ecchymosis, Exam: 05:11 Constitutional: This is a well developed, well nourished patient who is awake, alert, rt and in no acute distress. Head/Face: Normocephalic, atraumatic. Chest/axilla: Normal chest wall appearance and motion. Nontender with no deformity. No lesions are appreciated. Cardiovascular: Regular rate and rhythm with a normal S1 and S2. No gallops, murmurs, or rubs. Normal PMI, no JVD. No pulse deficits. Respiratory: Lungs have equal breath sounds bilaterally, clear to auscultation and percussion. No rales, rhonchi or wheezes noted. No increased work of breathing, no retractions or nasal flaring. Abdomen/GI: Soft, non-tender, with normal bowel sounds. No distension or tympany. No guarding or rebound. No evidence of tenderness throughout. Neuro: Awake and alert, GCS 15, oriented to person, place, time, and situation. Cranial nerves II-XII grossly intact. Motor strength 5/5 in all extremities. Sensory grossly intact. Cerebellar exam normal. Normal gait. 05:11 Head/face: 2 cm laceration above the left eyebrow, no other external evidence of trauma. 05:11 Musculoskeletal/extremity: Deformity, tenderness to left shoulder, pulses, motor, sensation intact. Vital Signs: 05:06 BP 142 / 83; Pulse 67; Resp 16; Temp 98.5; Pulse Ox 100% on R/A; Weight 71.67 kg; pf1 Height 5 ft. 8 in. ; Pain 9/10; 06:35 BP 140 / 78; Pulse 64; Pulse Ox 98% on R/A; tm6 05:06 Body Mass Index 24.02 (71.67 kg, 172.72 cm) pf1 05:06 Pain Scale: Adult pf1 MDM: 05:06 Patient medically screened. rt 06:58 Differential Diagnosis Fracture, dislocation, laceration, intracranial hemorrhage. Data rt reviewed: vital signs, nurses notes. Independent interpretation of the following test(s) in the Emergency Department X-Ray: My interpretation is Proximal humerus fracture seen on interpretation of x-ray images. Test considered but Not performed: EKG: Clear mechanical fall, EKG, labs not indicated. Counseling: I had a detailed discussion with the patient and/or guardian regarding the historical points, exam findings, and any diagnostic results supporting the discharge/admit diagnosis, radiology results, the need for outpatient follow up, to return to the emergency department if symptoms worsen or persist or if there are any questions or concerns that arise at home. ED course: Posterior scalp contusion was evaluated, no lacerations noted. 08/15 05:07 Order name: CT Head C Spine rt 08/15 05:07 Order name: Shoulder Left (2 View) XRAY rt 08/15 05:18 Order name: Shoulder Immobilizer; Complete Time: 05:27 rt 08/15 05:32 Order name: Dressing - Wound; Complete Time: 05:37 rt 08/15 05:32 Order name: Gloves, Sterile; Complete Time: 05:37 rt 08/15 05:32 Order name: Setup Suture Tray; Complete Time: 05:37 rt Administered Medications: 05:10 CANCELLED (Duplicate Order): bupivacaine-epinephrine(0.5 %) 5 ml Infiltration once; to rt bedside 05:27 Drug: morphine IVP or IV 4 mg IVP once over 4 mins Route: IVP; Infused Over: 4 mins; vc1 Site: right antecubital; 06:35 Follow up: Response: No adverse reaction; No change in condition vc1 05:27 Drug: Ondansetron IVP 4 mg IVP once; over 2 minutes Route: IVP; Site: right antecubital;vc1 06:35 Follow up: Response: No adverse reaction; Marked relief of symptoms vc1 05:29 CANCELLED (Other Intervention Used): tetanus-diphtheria toxoidadult 0.5 ml IM once; vc1 Provide Vaccine Information Statement (VIS). 05:32 Not Given (change in plan): bupivacaine(0.5 %) 5 ml 10 ml Infiltration once rt 06:03 Drug: Boostrix Tdap IM 0.5 ml IM once; as a single dose Route: IM; Site: right deltoid; vc1 06:34 Follow up: Response: No adverse reaction vc1 06:09 Drug: morphine IVP or IV 4 mg IVP once over 4 mins Route: IVP; Infused Over: 4 mins; vc1 Site: right antecubital; 06:35 Drug: Lidocaine Infiltration (1 %) 5 ml 5 ml Infiltration once; to bedside {Note: vc1 administered to laceration above left eyebrow by Dr. Castrejon.} Volume: 5 ml; Route: Infiltration; Disposition Summary: 08/15/23 06:56 Discharge Ordered Notes: Location: Home rt Problem: new rt Symptoms: have improved rt Condition: Stable rt Diagnosis - Mechanical fall rt - Facial laceration rt - Left proximal humerus fracture rt Followup: rt - With: Charles Smalls MD - When: 5 - 6 days - Reason: Discharge Instructions: - Discharge Summary Sheet rt - Humerus Fracture Treated With Immobilization rt - Facial Laceration rt Forms: - Medication Reconciliation Form rt - Thank You Letter rt - Antibiotic Education rt - Prescription Opioid Use rt - Patient Portal Instructions rt - Leadership Thank You Letter rt Prescriptions: - acetaminophen-codeine 300-30 mg Oral tablet - take 1 tablet ORAL route every 6 hours; 30 tablet; Refills: 0, Product rt Selection Permitted - ondansetron 4 mg Oral Tablet,disintegrating - take 1 tablet ORAL route every 6 hours; 30 tablet; Refills: 0, Product rt Selection Permitted Signatures: Dispatcher [employer] EDMS Ambar Madison RN RN vc1 Damir Castrejon MD MD rt Linnette Moore RN RN pf1 Corrections: (The following items were deleted from the chart) 05:10 05:10 Bupivacaine-Epinephrine Infiltration (0.5 %) 5 ml Infiltration once; to bedside rt ordered. rt 05:29 05:07 Tetanus-Diphtheria Toxoid IM Adult 0.5 ml IM once; Provide Vaccine Information vc1 Statement (VIS). ordered. rt 05:29 05:29 Tetanus-Diphtheria Toxoid IM Adult 0.5 ml IM once; Provide Vaccine Information vc1 Statement (VIS). ordered. vc1
[2023-08-15 07:31] VITALS: BP 140/78; TEMP 98.5; O2SAT 98
--- NOTE | 2023-08-15 20:27 | RAD REPORT ---
EXAM DESCRIPTION: CT - Head C Spine Mpr Wo Con - 08/15/2023 6:47 am CLINICAL HISTORY: 63 years Female TRAUMA, FALL TECHNIQUE: Multiple axial CT images of the brain and cervical spine were performed followed by sagit demetria and coronal reconstructed images. The CT study is performed according to ALARA (as low as reasona david achievable) or ALARA/IMAGE GENTLY, with automatic adjustment of mA and/or kV according to patient size. Performed on: 08/15/2023 at 5:33 AM COMPARISON: None. FINDINGS: CT HEAD: There is no evidence of mass, acute mass effect or midline shift. There are no acute extra-axial flui d collections. There is no evidence of acute intracranial hemorrhage. The cerebral sulci and ventricles are normal in size and configuration. There is slight asymmetric fo ankush dilatation of the occipital horn of the right lateral ventricle. There are no focal abnormal areas of increased or decreased attenuation. There is no significant mucosal thickening of the paranasal sinuses. The mastoid air cells are clear. The orbital contents are grossly unremarkable. No acute osseous abnormalities are identified. There is left occipital scalp soft tissue swelling and hematoma. There is no evidence of subcutaneous emphysema. There is also mild left supraorbital scalp soft tissue swelling. CT CERVICAL SPINE: The cervical vertebrae are normal in height. There is slight straightening of the normal cervical sebastian dosis which may be due to patient positioning, muscle spasm or degenerative changes of the cervical s pine. There is mild disc space narrowing at C4-C5 and C5-C6 and there is degenerative spurring along the vertebral endplates at these levels.. Bone mineralization is normal. The atlanto-axial articul ation is preserved and the odontoid process is intact. There is normal alignment of the facet joints on the parasagittal images. There are no significant de generative changes of the facet joints. There is no evidence of acute fracture or subluxation. There is mild C4-C5 and C5-C6 canal stenosis s econdary to disc osteophyte complexes. There is moderate right C4-C5 and mild to moderate bilateral C5-C6 neural foraminal stenosis secondary to uncovertebral joint hypertrophy. The prevertebral and paraspinal soft tissues are unremarkable. The lung apices are clear. There is le ft occipital scalp soft tissue swelling and hematoma. IMPRESSION: CT HEAD: 1. No evidence of acute intracranial pathology. 2. Left occipital scalp soft tissue swelling and hematoma. There is also mild left supraorbital sca lp soft tissue swelling. CT CERVICAL SPINE: 1. No evidence of acute cervical spine injury. 2. Mild degenerative changes at C4-C5 and C5-C6 as described above. 3. Straightening of the normal cervical lordosis which may be due to patient positioning, muscle sp asm or degenerative changes. Electronically signed by: Emilia Ferrer DO 08/15/2023 06:08 AM [employer]KER HELPER Due to temporary technical issues with the PACS/Fluency reporting system, reports are being signed by the in house radiologists without review as a courtesy to insure prompt reporting. The interpreting radiologist is fully responsible for the content of the report.
--- NOTE | 2023-08-15 20:29 | RAD REPORT ---
EXAM DESCRIPTION: RAD - Shoulder Left 2 View - 08/15/2023 5:19 am CLINICAL HISTORY: PAIN COMPARISON: None. TECHNIQUE: XR SHOULDER 2 OR MORE VIEWS LEFT 08/15/2023 5:07 AM PROTEOMICS SCIENTIST FINDINGS: There is an angulated and mildly comminuted fracture of the left humeral neck and lateral humeral head. Joint spaces are preserved. There is adjacent soft tissue swelling within the deltoid . IMPRESSION: Proximal left humerus fracture. Electronically signed by: Max Cortes MD 08/15/2023 06:43 AM PROTEOMICS SCIENTIST Due to temporary technical issues with the PACS/Fluency reporting system, reports are being signed by the in house radiologists without review as a courtesy to insure prompt reporting. The interpreting radiologist is fully responsible for the content of the report.
== END ==
LOC: ER 05:01
PROC: 0HQ1XZZ Repair Face Skin, External Approach (ICD-10-PCS; principal; 2023-08-15)
DX: S42.202A Unspecified fracture of upper end of left humerus, initial encounter for closed fracture (principal); S01.81XA Laceration without foreign body of other part of head, initial encounter; W18.30XA Fall on same level, unspecified, initial encounter
CPT/HCPCS: 70450; 72125; 73030; 96375; 96372; 96374; 99284; 12011; J2001; J2405